=== PATIENT | male | born 1970 | race Caucasian/White ===

== ENCOUNTER 2018-01-18 20:32 | Emergency (ER) | payer OTHER ==
[2018-01-18] MEDS ORDERED: NA CHLORIDE 0.9% 1,000 ML ONE (20:52)
--- NOTE | 2018-01-19 02:12 | ER ---
Nurse's Notes [facility] Name: Derek Richard Age: 47 yrs Sex: Male : 1970 Arrival Date: 01/18/2018 Time: 20:33 Bed 2 Private MD: Diagnosis: Adverse effect of beta-adrenoreceptor antagonists;Adverse effect of other psychotropic drugs Presentation: 01/18 20:37 Presenting complaint: EMS states: Pt is from [facility] and he was given the wrong tl2 medication tonight at 1949. Pt's vitals are stable and he is asymptomatic at this time. Pt has history of down's syndrome and is non verbal. Pt received, Benztropine 2 mg, carvedilol 6.25 mg, Divalproex 500 mg, Fanapt 12 mg, Oxcarbazepine 600 mg, Propranolol 20 mg, Risperidone 4 mg, Simvastatin 40 mg, Bisacodyl 5 mg, Tylenol 650 mg. Pt is not on any prescription medication. Transition of care: patient was received from another setting of care (long-term care facility), [facility]. Onset of symptoms was January 18, 2018 at 19:49. Risk Assessment: Do you want to hurt yourself or someone else? Patient reports no desire to harm self or others. Initial Sepsis Screen: Does the patient meet any 2 criteria? No. Patient's initial sepsis screen is negative. Does the patient have a suspected source of infection? No. Patient's initial sepsis screen is negative. Care prior to arrival: None. 20:37 Method Of Arrival: EMS: [facility] tl2 20:37 Acuity: JULIANNA 2 tl2 Triage Assessment: 20:47 General: Appears in no apparent distress. comfortable, Behavior is calm. Pain: Denies tl2 pain. Neuro: Level of Consciousness is awake, alert, Oriented to Pt is nonverbal. Cardiovascular: Denies chest pain. Respiratory: Airway is patent Respiratory effort is even, unlabored, Respiratory pattern is regular, symmetrical. GI: No signs and/or symptoms were reported involving the gastrointestinal system. : No signs and/or symptoms were reported regarding the genitourinary system. Derm: Skin is pink, warm \T\ dry. Historical: - Allergies: 20:47 No Known Allergies; tl2 - Home Meds: 20:47 Nexium 40 mg Oral cpDR 1 cap once daily [Active]; tylenol [Active]; Simvastatin Oral tl2 [Active]; - PMHx: 20:47 down's syndrome; Hypothyroidism; Seizures; GERD; CVA; Hyperlipidemia; tl2 - PSHx: 20:47 Cholecystectomy; tl2 - Immunization history:: Adult Immunizations up to date. - Social history:: Smoking status: Patient/guardian denies using tobacco. - Ebola Screening: : No symptoms or risks identified at this time. Screenin:49 Abuse screen: Denies threats or abuse. Nutritional screening: No deficits noted. tl2 Tuberculosis screening: No symptoms or risk factors identified. Fall Risk Secondary diagnosis (15 points) Gait- Weak (10 pts.). Assessment: 01/17 21:10 General: Appears in no apparent distress. Behavior is calm, cooperative. Pain: Unable ea to use pain scale. FLACC scale score is 0 out of 10. Neuro: Level of Consciousness is awake, alert, obeys commands, Oriented to patient is unable to verbalize answers. Cardiovascular: Patient's skin is warm and dry. Respiratory: Airway is patent Respiratory effort is even, unlabored, Respiratory pattern is regular, symmetrical. GI: No signs and/or symptoms were reported involving the gastrointestinal system. : No signs and/or symptoms were reported regarding the genitourinary system. Derm: Skin is pink, warm \T\ dry. Musculoskeletal: No signs and/or symptoms reported regarding the musculoskeletal system. 01/18 21:07 General: see triage assessment. tl2 21:44 Reassessment: Patient appears in no apparent distress at this time. No changes from tl2 previously documented assessment. VS remain stable, fluids infusing at 125 mL/hour. Will continue to monitor pt for several hours. 22:40 Reassessment: Patient appears in no apparent distress at this time. Patient and/or tl2 family updated on plan of care and expected duration. Pain level reassessed. Rec Therapist at bedside. 23:47 Reassessment: Pt resting with eyes closed, respirations even and unlabored, chest ea expansions even and symmetrical. No s/s of pain or discomfort noted at this time. 01/19 00:45 Reassessment: Awaiting dispo per MD. tl2 01:39 Reassessment: Pt resting with eyes closed, respirations even and unlabored, chest ea expansions even and unlabored. NO s/s of pain or discomfort noted at this time. 02:04 Reassessment: No changes from previously documented assessment. ea 02:35 Reassessment: Pt awake and alert, unable to verbalize needs. Family at bedside. No s/s ea of pain or discomfort at this time. Discharge instructions given to patient's family. Verbalized the understanding of instruction. Vital Signs: 01/18 20:47 BP 114 / 73; Pulse 66; Resp 15; Temp 98.3(O); Pulse Ox 98% on R/A; Weight 72.57 kg; tl2 Height 4 ft. 10 in. (147.32 cm); Pain 0/10; 21:07 BP 109 / 68; Pulse 62; Resp 15; Pulse Ox 95% on R/A; tl2 21:44 BP 110 / 80; Pulse 70; Resp 12; Pulse Ox 98% on R/A; tl2 22:40 BP 94 / 76; Pulse 89; Resp 12; Pulse Ox 95% on R/A; tl2 23:18 BP 116 / 68; Pulse 76; Resp 14; Pulse Ox 100% on R/A; jb4 23:48 BP 109 / 82; Pulse 72; Resp 18; Pulse Ox 98% on R/A; ea 01/19 00:23 BP 102 / 72; Pulse 60; Resp 14; Pulse Ox 99% on R/A; tl2 00:43 BP 94 / 71; Pulse 60; Resp 15; Pulse Ox 96% on R/A; tl2 01:30 BP 104 / 79; Pulse 61; Resp 18; Pulse Ox 95% on R/A; jb4 02:05 BP 127 / 92; Pulse 70; Resp 18; Pulse Ox 100% ; ea 01/18 20:47 Body Mass Index 33.44 (72.57 kg, 147.32 cm) tl2 ED Course: 01/18 20:33 Patient arrived in ED. ds1 20:39 Dillan Grace MD is Attending Physician. gs 20:41 Triage completed. tl2 20:47 Arm band placed on right wrist. tl2 20:49 Patient has correct armband on for positive identification. Bed in low position. Call tl2 light in reach. Side rails up X2. 21:03 Nury Bonilla RN is Primary Nurse. ea 21:03 Inserted saline lock: 22 gauge in right hand, using aseptic technique. tl2 01/19 02:38 No provider procedures requiring assistance completed. IV discontinued, intact, ea bleeding controlled, No redness/swelling at site. Pressure dressing applied. Administered Medications: 01/18 21:03 Drug: NS 0.9% 1000 ml Route: IV; Rate: 125 ml/hr; Site: right hand; ea 01/19 01:50 Follow up: Response: No adverse reaction; IV Status: Completed infusion ea Outcome: 02:12 Discharge ordered by . 02:39 Discharged to home via wheelchair, with family. ea 02:39 Condition: good 02:39 Discharge instructions given to family, Instructed on discharge instructions, follow up and referral plans. Demonstrated understanding of instructions, follow-up care. 02:40 Patient left the ED. ea Signatures: Renee Gorman ds1 Ruthann Ruiz, RN RN tl2 Avel Hines RN RN jb4 Nury Bonilla RN RN Dillan Telles MD MD gs
--- NOTE | 2018-01-19 02:12 | EDPHYS ---
Physician Documentation [facility] Name: Derek Richard Age: 47 yrs Sex: Male : 1970 Arrival Date: 01/18/2018 Time: 20:33 Bed 2 Private MD: ED Physician Dillan Grace HPI: 01/19 02:06 This 47 yrs old Male presents to ER via EMS with complaints of Received wrong gs medication. 02:06 The patient presents to the emergency department after a known overdose, that was gs accidental, resident snf given meds of wrong pt. Associated signs and symptoms: Pertinent negatives: decreased level of consciousness, shortness of breath. Severity of symptoms: At their worst the symptoms were mild in the emergency department the symptoms are unchanged. The patient has not experienced similar symptoms in the past. The patient has not recently seen a physician. Historical: - Allergies: 01/18 20:47 No Known Allergies; tl2 - Home Meds: 20:47 Nexium 40 mg Oral cpDR 1 cap once daily [Active]; tylenol [Active]; Simvastatin Oral tl2 [Active]; - PMHx: 20:47 down's syndrome; Hypothyroidism; Seizures; GERD; CVA; Hyperlipidemia; tl2 - PSHx: 20:47 Cholecystectomy; tl2 - Immunization history:: Adult Immunizations up to date. - Social history:: Smoking status: Patient/guardian denies using tobacco. - Ebola Screening: : No symptoms or risks identified at this time. ROS: 01/19 02:06 Unable to obtain ROS due to patient's inability to understand questions. gs Exam: 02:06 Head/Face: Normocephalic, atraumatic. Eyes: Pupils equal round and reactive to light, gs extra-ocular motions intact. Lids and lashes normal. Conjunctiva and sclera are non-icteric and not injected. Cornea within normal limits. Periorbital areas with no swelling, redness, or edema. ENT: Nares patent. No nasal discharge, no septal abnormalities noted. Tympanic membranes are normal and external auditory canals are clear. Oropharynx with no redness, swelling, or masses, exudates, or evidence of obstruction, uvula midline. Mucous membranes moist. Neck: Trachea midline, no thyromegaly or masses palpated, and no cervical lymphadenopathy. Supple, full range of motion without nuchal rigidity, or vertebral point tenderness. No Meningismus. Chest/axilla: Normal chest wall appearance and motion. Nontender with no deformity. No lesions are appreciated. Respiratory: Lungs have equal breath sounds bilaterally, clear to auscultation and percussion. No rales, rhonchi or wheezes noted. No increased work of breathing, no retractions or nasal flaring. Abdomen/GI: Soft, non-tender, with normal bowel sounds. No distension or tympany. No guarding or rebound. No evidence of tenderness throughout. Back: No spinal tenderness. No costovertebral tenderness. Full range of motion. Skin: Warm, dry with normal turgor. Normal color with no rashes, no lesions, and no evidence of cellulitis. MS/ Extremity: Pulses equal, no cyanosis. Neurovascular intact. Full, normal range of motion. 02:06 Constitutional: The patient appears alert, awake. 02:06 Neuro: Orientation: no acute changes, Mentation: no acute changes, Cranial nerves: no acute changes, Cerebellar function: no acute changes, Motor: moves all fours. Vital Signs: 01/18 20:47 BP 114 / 73; Pulse 66; Resp 15; Temp 98.3(O); Pulse Ox 98% on R/A; Weight 72.57 kg; tl2 Height 4 ft. 10 in. (147.32 cm); Pain 0/10; 21:07 BP 109 / 68; Pulse 62; Resp 15; Pulse Ox 95% on R/A; tl2 21:44 BP 110 / 80; Pulse 70; Resp 12; Pulse Ox 98% on R/A; tl2 22:40 BP 94 / 76; Pulse 89; Resp 12; Pulse Ox 95% on R/A; tl2 23:18 BP 116 / 68; Pulse 76; Resp 14; Pulse Ox 100% on R/A; jb4 23:48 BP 109 / 82; Pulse 72; Resp 18; Pulse Ox 98% on R/A; ea 01/19 00:23 BP 102 / 72; Pulse 60; Resp 14; Pulse Ox 99% on R/A; tl2 00:43 BP 94 / 71; Pulse 60; Resp 15; Pulse Ox 96% on R/A; tl2 01:30 BP 104 / 79; Pulse 61; Resp 18; Pulse Ox 95% on R/A; jb4 02:05 BP 127 / 92; Pulse 70; Resp 18; Pulse Ox 100% ; ea 01/18 20:47 Body Mass Index 33.44 (72.57 kg, 147.32 cm) tl2 MDM: 01/18 20:48 Patient medically screened. 01/19 02:06 Differential diagnosis: polypharmacy. Data reviewed: vital signs, nurses notes. Response to treatment: the patient's symptoms have markedly improved after treatment, and as a result, I will discharge patient, vss for 5 hours, mild somnolence arousable. 01/18 20:53 Order name: EKG; Complete Time: 20:53 01/18 20:53 Order name: EKG - Nurse/Tech; Complete Time: 20:58 Administered Medications: 01/18 21:03 Drug: NS 0.9% 1000 ml Route: IV; Rate: 125 ml/hr; Site: right hand; ea 01/19 01:50 Follow up: Response: No adverse reaction; IV Status: Completed infusion Disposition: 01/19/18 02:12 Discharged to Home. Impression: Adverse effect of beta-adrenoreceptor antagonists, Adverse effect of other psychotropic drugs. - Condition is Stable. - Discharge Instructions: Drug Overdose. - Medication Reconciliation Form, Thank You Letter, Antibiotic Education, Prescription Opioid Use form. - Follow up: Private Physician; When: 2 - 3 days; Reason: Re-evaluation by your physician. Signatures: Ruthann Ruiz RN RN tl2 Nury Bonilla RN RN ea Starr, Gregory, MD MD Corrections: (The following items were deleted from the chart) 02:40 02:12 01/19/2018 02:12 Discharged to Home. Impression: Adverse effect of ea beta-adrenoreceptor antagonists; Adverse effect of other psychotropic drugs. Condition is Stable. Forms are Medication Reconciliation Form, Thank You Letter, Antibiotic Education, Prescription Opioid Use. Follow up: Private Physician; When: 2 - 3 days; Reason: Re-evaluation by your physician. gs
[2018-01-19 02:46] VITALS: TEMP 98.3
[2018-01-19 02:56] VITALS: BP 127/92; O2SAT 100
--- NOTE | 2018-01-20 08:39 | EKG ---
Test Date: 2018-01-18 Test Time: 20:37:34 Income Tax Investigator: MEASUREMENT RESULTS: Intervals: Rate: 66 CA: 170 QRSD: 78 QT: 380 QTc: 398 [place]: P: 28 CA: 170 QRS: 50 T: 37 INTERPRETIVE STATEMENTS: Normal sinus rhythm Normal ECG Compared to ECG 07/19/2014 06:00:46 Right-axis deviation no longer present Electronically Signed On 01-20-18 08:36:52 CDT by Andrew Otto
== END 2018-01-19 02:40 | disposition home or self-care (01) ==
LOC: ER 20:32
DX: T44.7X5A Adverse effect of beta-adrenoreceptor antagonists, initial encounter (principal); T43.8X5A Adverse effect of other psychotropic drugs, initial encounter; Q90.9 Down syndrome, unspecified; E03.9 Hypothyroidism, unspecified; E78.5 Hyperlipidemia, unspecified
CPT/HCPCS: 93005; 96360; 96361; 99284; J7030

== ENCOUNTER 2021-08-03 22:49 | Emergency (ER) | payer OTHER ==
--- OUTSIDE RECORDS SUMMARY | 2021-08-03 22:53 | XMS REPORT | Continuity of Care Document ---
:[address] [facility] t Address [facility]3 Josh Mascorro [address] [place] [address] Care Team Providers Name Role Phone GERARD Attending Clinician Unavailable Pob, Lab Main Attending Clinician Unavailable Gerard CHEN Attending Clinician Doctor Unassigned, Name Attending Clinician Unavailable District), Co Covid Testing (Not Health Attending Clinician Lab, Fam Pob I Attending Clinician Unavailable Cielo [employer] PERSON Attending Clinician Payers Payer Name Policy Type Policy Number Effective Date Expiration Date Lauren damico MEDICARE PART A [id number] 1997 \T\ B 00:00:00 MEDICAID [facility] [id number] 2016 00:00:00 Problems Condition Condition Condition Status Onset Resolution Last Treating Co mments Source Name Details Category Date Date Treatment Clinician Date Altered Altered Disease Active Univers mental mental 3-26 ity of status status 00:00: [address] Obesity Obesity Disease Active 2019- Univers (BMI (BMI 3-26 ity of 30-39.9) 30-39.9) 00:00: [address] RLL RLL Disease Active 2018- Univers pneumonia pneumonia 2-19 ity of 00:00: [address] Morbid Morbid Disease Active 2019-0 Univers obesity obesity 2-19 [place] of with body [place] mass [place] mass index 00 [place] dical of Branch 40.0-49.9 40.0-49.9 Allergies, Adverse Reactions, Alerts Allergy Allergy Status Severity Reaction(s) Onset Inactive Treating Comm ents Source Name Type Date Date Clinician NO KNOWN Drug Active Univers ALLERGIE Class ity of [facility] Social History Social Habit Start Date Stop Date Quantity Comments Source Sex Assigned At [facility]it y of [facility] Exposure to Not sure [facility] SARS-CoV-2 [place] [facility] (event) Branch Alcohol intake 2018-08-13 2018-08-13 Current University of 00:00:00 00:00:00 non-drinker of [facility] alcohol Branch (finding) Smoking Status Start Date Stop Date Source Never smoker [facility] Medical Branch Medications Ordered Filled Start Stop Current Ordering Indication Dosage Frequency Signature Comments Components Source Medication Medication Date Date Medication? Clinician (SIG) Name Name calcium 2019- Yes 1000mg Take 1,000 Un warren carbonate/v 3-27 mg by ity of itamin D3 23:13: mouth 2 [place] (CALCIUM + 08 (two) Medical D ORAL) times Branch daily. Dexlansopra 2019- Yes 60mg Take 60 mg Univers zole 3-27 by mouth ity of (DEXILANT) 23:13: daily. [place] 60 mg 08 Medical capsule Branch Levothyroxi 2019- Yes 50ug Take 50 Uni vers ne 50 mcg 3-27 mcg by ity of capsule 23:13: mouth [place] 08 daily. Medical Branch metformin 2019- Yes 1000mg Take 1,000 Univers ER 500 mg 3-27 mg by ity of 24 hr 23:13: mouth [place] tablet 08 daily with Medical breakfast. Branch simvastatin 2018- Yes 20mg Take 20 mg Univers 20 mg 3-27 by mouth ity of tablet 23:13: at [place] 08 bedtime. Medical Branch docusate 2019- Yes 100mg Take 100 Univ ers (COLACE) 3-27 mg by ity of 100 mg 23:13: mouth [place] capsule 08 daily. Medical Branch loratadine 2019-0 Yes 10mg Take 10 mg U nivers 10 mg 3-27 by mouth ity of capsule 23:13: once daily [place] 08 as needed Medical (nasal and Branch sinus congestion ). magnesium 2019-0 Yes 30mL Take 30 mL [place] hydroxide 3-27 by mouth ity of concentrate 23:13: once daily [place] 08 as needed Medical for Branch Constipati on. acetaminoph 2019-0 Yes Take by Un war[place] en 325 mg 3-27 mouth ity of tablet 23:13: every 4 [place] 08 (four) Medical hours as Branch needed. albuterol 2019-0 Yes 2.5mg Inhale 2.5 U nivers 2.5 mg /3 3-27 mg 2 (two) ity of mL (0.083 23:13: times [place] %) 08 daily as Medical nebulizer needed for Bran ch solution Wheezing or Shortness of Breath. bismuth 2019-0 Yes 30mL Take 30 mL Univ ers subsalicyla 3-27 by mouth ity of te 23:13: every 6 [place] (BISMATROL) 08 (six) Medical 262 mg/15 hours as Branch mL needed suspension (upset stomach, nausea, diarrhea). celecoxib 2019-0 Yes 50mg Take 50 mg Un war[place] 50 mg 3-27 by mouth 2 ity of capsule 23:13: (two) [place] 08 times Medical daily as Branch needed. diphenhydrA 2019-0 Yes 25mg Take 25 mg Univers MINE 3-27 by mouth ity of (ALLERGY) 23:13: every 6 [place] 25 mg 08 (six) Medical capsule hours as Branch needed for Allergies. guaiFENesin 2019-0 Yes 200mg Take 200 U nivers 100 mg/5 mL 3-27 mg by ity of solution 23:13: mouth [place] 08 every 4 Medical (four) Branch hours as needed for Cough. ACETAMINOPH 2019-0 Yes 650mg Take 650 U nivers EN PAIN 3-27 mg by ity of RELIEF ORAL 23:13: mouth [place] 08 every 6 Medical (six) Branch hours as needed. calcium 2019-0 Yes 1000mg Take 1,000 Un [place] carbonate/v 3-27 mg by ity of itamin D3 23:13: mouth 2 [place] (CALCIUM + 08 (two) Medical D ORAL) times Branch daily. Dexlansopra 2019-0 Yes 60mg Take 60 mg Univers zole 3-27 by mouth ity of (DEXILANT) 23:13: daily. [place] 60 mg 08 Medical capsule Branch Levothyroxi 2019-0 Yes 50ug Take 50 Uni vers ne 50 mcg 3-27 mcg by ity of capsule 23:13: mouth [place] 08 daily. Medical Branch metformin 2019-0 Yes 1000mg Take 1,000 Univers ER 500 mg 3-27 mg by ity of 24 hr 23:13: mouth [place] tablet 08 daily with Medical breakfast. Branch simvastatin 2019-0 Yes 20mg Take 20 mg Univers 20 mg 3-27 by mouth ity of tablet 23:13: at [place] 08 bedtime. Medical Branch docusate 2019-0 Yes 100mg Take 100 Univ ers (COLACE) 3-27 mg by ity of 100 mg 23:13: mouth [place] capsule 08 daily. Medical Branch loratadine 2019-0 Yes 10mg Take 10 mg U nivers 10 mg 3-27 by mouth ity of capsule 23:13: once daily [place] 08 as needed Medical (nasal and Branch sinus congestion ). magnesium 2019-0 Yes 30mL Take 30 mL Un war[place] hydroxide 3-27 by mouth ity of concentrate 23:13: once daily [place] 08 as needed Medical for Branch Constipati on. acetaminoph 2019-0 Yes Take by Un war[place] en 325 mg 3-27 mouth ity of tablet 23:13: every 4 [place] 08 (four) Medical hours as Branch needed. albuterol 2019-0 Yes 2.5mg Inhale 2.5 U nivers 2.5 mg /3 3-27 mg 2 (two) ity of mL (0.083 23:13: times [place] %) 08 daily as Medical nebulizer needed for Bran ch solution Wheezing or Shortness of Breath. bismuth 2019-0 Yes 30mL Take 30 mL Univ ers subsalicyla 3-27 by mouth ity of te 23:13: every 6 [place] (BISMATROL) 08 (six) Medical 262 mg/15 hours as Branch mL needed suspension (upset stomach, nausea, diarrhea). celecoxib 2019-0 Yes 50mg Take 50 mg Un war[place] 50 mg 3-27 by mouth 2 ity of capsule 23:13: (two) [place] 08 times Medical daily as Branch needed. diphenhydrA 2019-0 Yes 25mg Take 25 mg Univers MINE 3-27 by mouth ity of (ALLERGY) 23:13: every 6 [place] 25 mg 08 (six) Medical capsule hours as Branch needed for Allergies. guaiFENesin 2019-0 Yes 200mg Take 200 U nivers 100 mg/5 mL 3-27 mg by ity of solution 23:13: mouth [place] 08 every 4 Medical (four) Branch hours as needed for Cough. ACETAMINOPH 2019-0 Yes 650mg Take 650 U nivers EN PAIN 3-27 mg by ity of RELIEF ORAL 23:13: mouth [place] 08 every 6 Medical (six) Branch hours as needed. calcium 2019-0 Yes 1000mg Take 1,000 Un [place] carbonate/v 3-27 mg by ity of itamin D3 23:13: mouth 2 [place] (CALCIUM + 08 (two) Medical D ORAL) times Branch daily. Dexlansopra 2019-0 Yes 60mg Take 60 mg Univers zole 3-27 by mouth ity of (DEXILANT) 23:13: daily. [place] 60 mg 08 Medical capsule Branch Levothyroxi 2019-0 Yes 50ug Take 50 Uni vers ne 50 mcg 3-27 mcg by ity of capsule 23:13: mouth [place] 08 daily. Medical Branch metformin 2019-0 Yes 1000mg Take 1,000 Univers ER 500 mg 3-27 mg by ity of 24 hr 23:13: mouth [place] tablet 08 daily with Medical breakfast. Branch simvastatin 2019-0 Yes 20mg Take 20 mg Univers 20 mg 3-27 by mouth ity of tablet 23:13: at [place] 08 bedtime. Medical Branch docusate 2019-0 Yes 100mg Take 100 Univ ers (COLACE) 3-27 mg by ity of 100 mg 23:13: mouth [place] capsule 08 daily. Medical Branch loratadine 2019-0 Yes 10mg Take 10 mg U nivers 10 mg 3-27 by mouth ity of capsule 23:13: once daily [place] 08 as needed Medical (nasal and Branch sinus congestion ). magnesium 2019-0 Yes 30mL Take 30 mL Un [place] hydroxide 3-27 by mouth ity of concentrate 23:13: once daily [place] 08 as needed Medical for Branch Constipati on. acetaminoph 2019-0 Yes Take by Un war[place] en 325 mg 3-27 mouth ity of tablet 23:13: every 4 [place] 08 (four) Medical hours as Branch needed. albuterol 2019-0 Yes 2.5mg Inhale 2.5 U nivers 2.5 mg /3 3-27 mg 2 (two) ity of mL (0.083 23:13: times [place] %) 08 daily as Medical nebulizer needed for Bran ch solution Wheezing or Shortness of Breath. bismuth 2019-0 Yes 30mL Take 30 mL Univ ers subsalicyla 3-27 by mouth ity of te 23:13: every 6 [place] (BISMATROL) 08 (six) Medical 262 mg/15 hours as Branch mL needed suspension (upset stomach, nausea, diarrhea). celecoxib 2019-0 Yes 50mg Take 50 mg Un war[place] 50 mg 3-27 by mouth 2 ity of capsule 23:13: (two) [place] 08 times Medical daily as Branch needed. diphenhydrA 2019-0 Yes 25mg Take 25 mg Univers MINE 3-27 by mouth ity of (ALLERGY) 23:13: every 6 [place] 25 mg 08 (six) Medical capsule hours as Branch needed for Allergies. guaiFENesin 2019-0 Yes 200mg Take 200 U nivers 100 mg/5 mL 3-27 mg by ity of solution 23:13: mouth [place] 08 every 4 Medical (four) Branch hours as needed for Cough. ACETAMINOPH 2019-0 Yes 650mg Take 650 U nivers EN PAIN 3-27 mg by ity of RELIEF ORAL 23:13: mouth [place] 08 every 6 Medical (six) Branch hours as needed. calcium 2019-0 Yes 1000mg Take 1,000 [place] carbonate/v 3-27 mg by ity of itamin D3 23:13: mouth 2 [place] (CALCIUM + 08 (two) Medical D ORAL) times Branch daily. Dexlansopra 2019-0 Yes 60mg Take 60 mg Univers zole 3-27 by mouth ity of (DEXILANT) 23:13: daily. [place] 60 mg 08 Medical capsule Branch Levothyroxi 2019-0 Yes 50ug Take 50 Uni vers ne 50 mcg 3-27 mcg by ity of capsule 23:13: mouth [place] 08 daily. Medical Branch metformin 2019-0 Yes 1000mg Take 1,000 Univers ER 500 mg 3-27 mg by ity of 24 hr 23:13: mouth [place] tablet 08 daily with Medical breakfast. Branch simvastatin 20190 Yes 20mg Take 20 mg Univers 20 mg 3-27 by mouth ity of tablet 23:13: at [place] 08 bedtime. Medical Branch docusate 2019-0 Yes 100mg Take 100 Univ ers (COLACE) 3-27 mg by ity of 100 mg 23:13: mouth [place] capsule 08 daily. Medical Branch loratadine 2019-0 Yes 10mg Take 10 mg U nivers 10 mg 3-27 by mouth ity of capsule 23:13: once daily [place] 08 as needed Medical (nasal and Branch sinus congestion ). magnesium 2019-0 Yes 30mL Take 30 mL Un [place] hydroxide 3-27 by mouth ity of concentrate 23:13: once daily [place] 08 as needed Medical for Branch Constipati on. acetaminoph 2019-0 Yes Take by Un war[place] en 325 mg 3-27 mouth ity of tablet 23:13: every 4 [place] 08 (four) Medical hours as Branch needed. albuterol 2019-0 Yes 2.5mg Inhale 2.5 U nivers 2.5 mg /3 3-27 mg 2 (two) ity of mL (0.083 23:13: times [place] %) 08 daily as Medical nebulizer needed for Bran ch solution Wheezing or Shortness of Breath. bismuth 2019-0 Yes 30mL Take 30 mL Univ ers subsalicyla 3-27 by mouth ity of te 23:13: every 6 [place] (BISMATROL) 08 (six) Medical 262 mg/15 hours as Branch mL needed suspension (upset stomach, nausea, diarrhea). celecoxib 2019-0 Yes 50mg Take 50 mg Un war[place] 50 mg 3-27 by mouth 2 ity of capsule 23:13: (two) [place] 08 times Medical daily as Branch needed. diphenhydrA 2019-0 Yes 25mg Take 25 mg Univers MINE 3-27 by mouth ity of (ALLERGY) 23:13: every 6 [place] 25 mg 08 (six) Medical capsule hours as Branch needed for Allergies. guaiFENesin 2019-0 Yes 200mg Take 200 U nivers 100 mg/5 mL 3-27 mg by ity of solution 23:13: mouth [place] 08 every 4 Medical (four) Branch hours as needed for Cough. ACETAMINOPH 2019-0 Yes 650mg Take 650 U nivers EN PAIN 3-27 mg by ity of RELIEF ORAL 23:13: mouth [place] 08 every 6 Medical (six) Branch hours as needed. Immunizations Ordered Filled Immunization Date Status Comments [facility] e Immunization Name Name Pneumococcal 2018-08-14 Completed University o f Polysaccharide, 00:00:00 [place] ical PPSV23 (PNEUMOVAX) Branch Pneumococcal 2018-08-14 Completed University o f Polysaccharide, 00:00:00 [place] Med ical PPSV23 (PNEUMOVAX) Branch Pneumococcal 2018-08-14 Completed University o f Polysaccharide, 00:00:00 [place] Med ical PPSV23 (PNEUMOVAX) Branch Pneumococcal 2018-08-14 Completed University o f Polysaccharide, 00:00:00 [place] Med ical PPSV23 (PNEUMOVAX) Branch Procedures Procedure Date / Time Performed Performing Clinician [facility] e ASSIGNMENT OF BENEFITS 2020-06-03 15:32:42 Doctor Unassigned, No [facility] Name Medical Branch Encounters Start End Encounter Admission Attending Care Care Encounter Source Date/Time Date/Time Type Type Clinicians Facility Department ID 2020-06-03 2020-06-03 Outpatient R [facility] [id number] Univers 10:00:00 10:00:00 [id number] ity of [facility] 2020-06-03 2020-06-03 Outpatient R GERARD [facility] [id number] Univers 10:00:00 10:00:00 BLAINE ity [facility] 2020-06-03 2020-06-03 [place] Fireman Jose Armando, Adc Lab Main [facility] 1.2.8 [id number] Univers 09:35:24 09:50:24 Visit Blaine Keenan [id number] ity of [place] [id number] [place] Profess[place] [phone] [address] 2020-06-03 2020-06-03 Orders Doctor ELOISE [id number] Univers 00:00:00 00:00:00 Only Unassigned, DAREN [id number] ity of [place] [facility] [id number] Marc as [phone] [address] 2020-03-24 2020-03-24 Telephone District)ELOISE [id number] Univers 00:00:00 00:00:00 Drayden SEALY [id number] ity of [facility] [id number] [place] [phone] [facility] betzy (Not Health 019 Bran 2020-03-23 2020-03-23 Outpatient R [facility] [id number] Univers 13:20:00 13:20:00 ity of [facility] 2020-03-23 2020-03-23 Outpatient R [facility] [id number] Univers 13:20:00 13:20:00 ity of [facility] 2020-03-22 2020-03-22 Laboratory Lab, Adc Fam Jose Armando I [facility] [id number]. [id number] Univers 16:09:08 16:29:08 Only Jewell Buck [id number] ity of Ad [id number] Marc as [place] [phone] Tn dical [facility] 0[address] Branch [address] 2020-03-22 2020-03-22 Outpatient R [facility] [id number] Univers 16:20:00 16:20:00 ity [facility] 2020-03-22 2020-03-22 Outpatient R [facility] [id number] Univers 16:20:00 16:20:00 [facility] [place] Results This patient has no known results.
[2021-08-04] MEDS ORDERED: HYDROCOD 2.5mg-ACETAMIN 108mg/5mL Soln ONE (00:02)
[2021-08-04] MEDS ORDERED: IBUPROFEN 100 MG/5 ML UCUP ONE (00:02)
--- NOTE | 2021-08-04 00:59 | ER ---
Nurse's Notes [facility] Name: Derek Richard Age: 50 yrs Sex: Male : 1970 Arrival Date: 08/03/2021 Time: 22:52 Bed 20 Private MD: Diagnosis: Pain in foot and toes Presentation: 08/03 23:03 Chief complaint: EMS states: Left foot pain. Coronavirus screen: Unknown. Ebola Screen: leilani Unable to complete the Ebola screening because: Pt not verbal to answer any questions. Initial Sepsis Screen: Does the patient meet any 2 criteria? No. Patient's initial sepsis screen is negative. Does the patient have a suspected source of infection? No. Patient's initial sepsis screen is negative. Risk Assessment: Do you want to hurt yourself or someone else? Unable to obtain. Onset of symptoms is unknown. 23:03 Method Of Arrival: EMS: [facility] leilani 23:03 Acuity: JULIANNA 4 leilani Triage Assessment: 23:41 General: Appears in no apparent distress. General: Behavior is calm. Pain: Unable to leilani use pain scale. Patient appears quiet. Historical: - Home Meds: 23:15 Nexium 40 mg Oral cpDR 1 cap once daily [Active]; Simvastatin Oral [Active]; Tylenol leilani [Active]; - PMHx: 23:15 CVA; Down's Syndrome; GERD; Hyperlipidemia; Hypothyroidism; Seizures; leilani - Immunization history:: Unknown. - Social history:: Unknown, Smoking status: Patient/guardian denies using. Screenin:17 Abuse screen: Unknown. Nutritional screening: Unknown. Tuberculosis screening: Unknown. leilani Fall Risk Ambulatory Aid- Crutches/Cane/Walker (15 pts). Assessment: 23:17 Reassessment: The pt is non-verbal. leilani 23:18 Reassessment: Per EMS, the pt has a "new home nurse" and she called them, as the pt has leilani a reddened area to his foot, left foot. 08/04 00:56 Reassessment: No changes from previously documented assessment. Although the pt is leilani non-verbal, he laughed when I pantomimed for him to pull his pull-up, back up. The pt removed the first diaper and I put him in a pull-up, which he has now, removed. The pt has no fracture and is in NAD. 01:38 Reassessment: No changes from previously documented assessment. We are awaiting EMS leilani transport to take the pt back home. Vital Signs: 08/03 23:03 BP 93 / 52; Pulse 72; Resp 18; Temp 98.5(TE); Pulse Ox 100% on R/A; Pain 0/10; leilani 23:16 BP 93 / 52; Pulse 72; Resp 18; Temp 98.5; Pulse Ox 100% on R/A; Pain 0/10; leilani 08/04 00:26 BP 94 / 63; Pulse 68; Resp 18; Temp 98.5; Pulse Ox 100% on R/A; Pain 0/10; leilani 01:58 BP 94 / 58; Pulse 62; Resp 18; Temp 98.5; Pulse Ox 100% on R/A; Pain 0/10; leilani ED Course: 08/03 22:52 Patient arrived in ED. [email or web address] 23:02 Carrie Drew, RN is Primary Nurse. leilani 23:15 Triage completed. leilani 23:18 Ej Johnson PA is PHCP. cp 23:18 Lexx López MD is Attending Physician. cp 23:40 Patient has correct armband on for positive identification. Bed in low position. Side leilani rails up X2. Pulse ox on. 23:41 No provider procedures requiring assistance completed. leilani 23:42 Arm band placed on. leilani 08/04 00:34 XRAY Foot LEFT 3 View In Process Unspecified. EDMS 01:59 Patient did not have IV access during this emergency room visit. leilani Administered Medications: 00:10 Drug: Lortab Liquid 10 ml Route: PO; lielani 00:10 Drug: Ibuprofen Suspension 600 mg Route: PO; leilani Output: 08/03 23:40 Other: 2 (Diapers) ; Total: 0ml. leilnai Outcome: 23:42 Condition: stable leilani 08/04 00:58 Discharge ordered by . cp 01:59 Discharged to home via ambulance. leilani 01:59 Discharge instructions given to EMS, Instructed on discharge instructions, follow up and referral plans. medication usage, Demonstrated understanding of instructions, follow-up care, medications, Prescriptions given X 2. 02:00 Patient left the ED. leilani Signatures: Dispatcher [employer] EDMS Ej Johnson PA PA cp Jeffries, Jennifer [email or web address] Carrie Drew, RN RN leilani
--- NOTE | 2021-08-04 00:59 | EDPHYS ---
Physician Documentation [facility] Name: Derek Richard Age: 50 yrs Sex: Male : 1970 Arrival Date: 08/03/2021 Time: 22:52 Bed 20 Private MD: ED Physician Lexx López HPI: 08/04 00:00 This 50 yrs old Unknown Male presents to ER via EMS with complaints of Foot Pain. cp 00:00 The patient presents with pain, that is acute. The complaints affect the left foot. cp Context: resulted from an unknown cause, uses a walker. Modifying factors: the symptoms are aggravated by palpation. Associated signs and symptoms: Pertinent negatives fever. 00:00 Unable to obtain HPI due to patient's speech is incomprehensible, patient's inability cp to understand questions. Historical: - Home Meds: 08/03 23:15 Nexium 40 mg Oral cpDR 1 cap once daily [Active]; Simvastatin Oral [Active]; Tylenol leilani [Active]; - PMHx: 23:15 CVA; Down's Syndrome; GERD; Hyperlipidemia; Hypothyroidism; Seizures; leilani - Immunization history:: Unknown. - Social history:: Unknown, Smoking status: Patient/guardian denies using. ROS: 08/04 00:05 MS/extremity: Positive for pain, tenderness, of the left foot. cp 00:05 Constitutional: Negative for fever. cp 00:05 Unable to obtain ROS due to patient's speech is incomprehensible, patient's inability to understand questions. Exam: 00:10 Constitutional: The patient appears in no acute distress, alert, awake, non-toxic, well cp developed, well nourished, uncomfortable. 00:10 Head/Face: Normocephalic, atraumatic. cp 00:10 Chest/axilla: Inspection: normal. 00:10 Cardiovascular: Rate: normal. 00:10 Respiratory: the patient does not display signs of respiratory distress, Respirations: normal, no use of accessory muscles, no retractions, labored breathing, is not present. 00:10 Abdomen/GI: Exam negative for discomfort, distension, guarding, Inspection: abdomen appears normal. 00:10 Musculoskeletal/extremity: Extremities: grossly normal except: noted in the dorsal side first and second metatarsal phalangeal joint extending to proximal phalanxes: swelling, tenderness, minimal erythema, ROM: full active range of motion, in the left foot, Pulses: noted to be 2+ in the left dorsalis pedis artery, DVT Exam: No signs of deep vein thrombosis. 00:10 Skin: cellulitis, is not appreciated, no rash present. Vital Signs: 08/03 23:03 BP 93 / 52; Pulse 72; Resp 18; Temp 98.5(TE); Pulse Ox 100% on R/A; Pain 0/10; leilani 23:16 BP 93 / 52; Pulse 72; Resp 18; Temp 98.5; Pulse Ox 100% on R/A; Pain 0/10; leilani 08/04 00:26 BP 94 / 63; Pulse 68; Resp 18; Temp 98.5; Pulse Ox 100% on R/A; Pain 0/10; leilani 01:58 BP 94 / 58; Pulse 62; Resp 18; Temp 98.5; Pulse Ox 100% on R/A; Pain 0/10; leilani MDM: 08/03 23:44 Patient medically screened. cp 08/04 00:10 Differential diagnosis: gout, cellulitis, fracture. cp 00:58 Data reviewed: vital signs, nurses notes, radiologic studies, plain films. cp 00:58 Test interpretation: by ED physician or midlevel provider: plain radiologic studies. cp Response to treatment: Pain improved, and as a result, I will discharge patient, and treat with NSAIDs. 08/03 23:54 Order name: XRAY Foot LEFT 3 View cp Administered Medications: 00:10 Drug: Lortab Liquid 10 ml Route: PO; leilani 00:10 Drug: Ibuprofen Suspension 600 mg Route: PO; leilani Disposition: 19:22 Co-signature as Attending Physician, Lexx López MD I agree with the assessment and kdr plan of care. Disposition Summary: 08/04/21 00:58 Discharge Ordered Location: Home cp Problem: new cp Symptoms: have improved cp Condition: Stable cp Diagnosis - Pain in foot and toes cp Followup: cp - With: Private Physician - When: 1 - 2 days - Reason: Recheck today's complaints Discharge Instructions: - Discharge Summary Sheet cp - Foot Pain cp Forms: - Medication Reconciliation Form cp - Thank You Letter cp - Antibiotic Education cp - Prescription Opioid Use cp Prescriptions: - Diclofenac Sodium 75 mg Oral tablet,delayed release (DR/EC) - take 1 tablet by ORAL route 2 times per day; 20 tablet; Refills: 0, Product cp Selection Permitted Signatures: Dispatcher [employer] Lexx Dumont MD MD kdr Page, Corey, PA PA cp O'Farrell, Brenda RN RN leilani
[2021-08-04 02:05] VITALS: TEMP 98.5; O2SAT 100
[2021-08-04 02:09] VITALS: BP 94/58
--- NOTE | 2021-08-04 13:26 | RAD REPORT ---
EXAM DESCRIPTION: RAD - Foot Left 3 View - 08/04/2021 12:35 am CLINICAL HISTORY: 50 years, Male, PAIN COMPARISON: None. FINDINGS: 3 X-ray views of the left foot (Frontal, lateral and oblique views) were performed. No areas of acute bony injuries were demonstrated. No gross soft tissue abnormality is identified. There are no gross intraosseous lesions. No periosteal reaction were seen. Minimal degenerative changes are seen within the first metatarsophalangeal joint and the midfoot articulation. IMPRESSION: Mild degenerative changes. No evidence for acute bony injuries Electronically signed by: Mega Monteiro MD 08/04/2021 12:51 AM CDT Due to temporary technical issues with the PACS/Fluency reporting system, reports are being signed by the in House radiologists without review as a courtesy to insure prompt reporting. The interpreting radiolog ist is fully responsible for the content of the report.
== END 2021-08-04 02:00 | disposition home or self-care (01) ==
LOC: ER 22:49
DX: M79.672 Pain in left foot (principal); M79.675 Pain in left toe(s); Q90.9 Down syndrome, unspecified
CPT/HCPCS: 99284

== ENCOUNTER 2021-08-12 08:05 | Day surgery (SDC) | payer OTHER ==
[2021-08-12] MEDS ORDERED: CEFAZOLIN SODIUM 1 GM/VIAL ONE (08:22)
[2021-08-12] MEDS ORDERED: NA CHLORIDE 0.9% 1,000 ML ONE (08:23)
[2021-08-12] MEDS ORDERED: NA CHLORIDE 0.9% 50 ML ONE (08:23)
[2021-08-12] MEDS ORDERED: LIDOCAINE 2% MPF 5 ML VIAL ONE (08:24)
[2021-08-12] MEDS ORDERED: propofoL 200 MG/20 ML VIAL IV ONE (08:24)
[2021-08-12] MEDS ORDERED: MIDAZOLAM HCL 2 MG/2 ML INJ ONE (08:24)
[2021-08-12] MEDS ORDERED: FENTANYL CITR 100 MCG/2 ML ONE (08:24)
[2021-08-12] MEDS ORDERED: LIDOCAINE 1% W/EPI 1:100,000 10 ML VIAL ONE (08:26)
[2021-08-12] MEDS ORDERED: BUPIVACAINE 0.25% PF 10 ML VIAL ONE (08:26)
[2021-08-12] MEDS ORDERED: ONDANSETRON 4 MG/2 ML VIAL ONE (08:53)
[2021-08-12] MEDS ORDERED: EPHEDRINE SULF 50 MG/ML VIAL ONE (08:54)
[2021-08-12] MEDS ORDERED: BUPIVACAINE 0.25% PF 10 ML VIAL IJ ONE ×2 (09:12)
[2021-08-12] MEDS: FENTANYL CITR 100 MCG/2 ML ONE ×2 (09:55→10:00)
[2021-08-12 12:03] VITALS: BP 107/59; TEMP 96.8; O2SAT 98
== END 2021-08-12 11:28 | disposition home or self-care (01) ==
LOC: OR 08:05
PROVIDERS: ATTEND Surgery
PROC: 0JB60ZZ Excision of Chest Subcutaneous Tissue and Fascia, Open Approach (ICD-10-PCS; principal; 2021-08-12 09:30)
DX: L72.3 Sebaceous cyst (principal); L90.5 Scar conditions and fibrosis of skin
CPT/HCPCS: 82947 ×2; 88305; 11406; J2704; J2250; J3010 ×2; J7030; J2405; J0690; 88304